=== PATIENT | female | born 1955 | race Caucasian/White ===

== ENCOUNTER → 2019-07-20 | Outpatient (CLI) | payer MEDICARE, BC ==
[2016-03-08 08:42] VITALS: BP 138/89
[~2019-07-20] MED LIST: ASPI81TA50 PO; ATOR40TA59 PO; CALC-98 PO; DILT120T3 PO; DIVA500T2 PO; DULO30CA44 PO; FURO20TA3 PO; HYDROCODONE-IB1 EAC3 PO; ISOS30TA19 PO; LEVO50TA5 PO; LOSA25TA54 PO; METF10007 PO; MULT-460 PO; NITR0.4T SL; NORT50CA PO; OXYC1TAB15 PO; POTA500T5 PO; WARF4TAB64 PO
--- NOTE | 2019-07-21 09:25 | KCIC ---
EXAM: MRI right shoulder DATE: 07/20/2019 1:15 PM COMPARISON: None INDICATION: Progressing right shoulder pain for one year TECHNIQUE: Multiplanar, multisequence MRI of the right shoulder was performed without contrast. FINDINGS: AC joint degenerative changes are seen with small inferior projecting osteophytes. Type I acromion. Subacromial-subdeltoid bursal distention likely bursitis. There is marked thickening of the central portion of the the supraspinous tendon with marked increased signal, just below the threshold for a fluid signal. The bursal and articular fibers are visualized and therefore tear tear of the supraspinatus is less likely. However tendinosis or contusion have similar appearance. In addition, hydroxyapatite deposition disease may also have similar characteristics. This can be correlated with radiographs and patient's symptoms. Intrasubstance ganglion within the infraspinatus extends to the myotendinous junction. Mild subscapularis tendinosis. Mild thickening of the intra-articular segment long head biceps tendon likely tendinosis. Fissuring of the extra articular long head biceps tendon with fluid signal. No discrete labral tear is seen. Survey evaluation of the articular cartilage, grossly preserved. No evidence for fracture or osteonecrosis. IMPRESSION: 1. Morphologic and signal changes within the central portion of the supraspinatus at the attachment with apparently intact articular and bursal fibers. Given these findings contusion or tendinosis is suspected anterior is less likely. Additionally intrinsic tendinous process such as calcific tendinitis/hydroxyapatite deposition disease may result in similar appearance and can be correlated with patient's symptoms and radiographs. 2. Intrasubstance ganglion of the infraspinatus extends to the myotendinous junction. 3. Intra-articular long head biceps tendinosis. Extra articular long head biceps partial fissuring/incomplete longitudinal tear. Electronically signed by: Eliazar Brooks MD (07/21/2019 9:22 AM) [facility]
== END | disposition home or self-care (01) ==
LOC: KCIC MRI 12:24
PROVIDERS: ATTEND Family Medicine
DX: M19.011 Primary osteoarthritis, right shoulder (principal)
CPT/HCPCS: 73221

== ENCOUNTER 2020-06-06 16:58 | Inpatient (IN) | payer MEDICARE, BC ==
[~2020-06-06] VITALS: Ht 167.6 cm; Wt 110.7 kg
[2020-06-06] MEDS: IV NORMAL SALINE 1000ML BAG 1,000 ML IV SCH (15:00)
[~2020-06-06 16:58] MED LIST changes: -NITR0.4T SL; +NITR0.4T24 SL
[2020-06-06] MEDS ORDERED: IV NORMAL SALINE 500ML BAG 500 ML IV ONE (20:30)
--- NOTE | 2020-06-06 20:34 | PHYS DOC ---
Past Medical History Smoking Status: Current Every Day Smoker General Adult EDM: Chief Complaint: SHORTNESS OF BREATH HPI: HPI: Patient is a 65-year-old female who presents with a three-week history of hemoptysis. She states she has been coughing and every time she coughs something up there is a fair amount of blood in the sputum. She denies any fever chills or sweats. She does feel achy. She states she is only smoked 1 cigarette in the last 5 or 6 days. Ordinarily, she is a heavy smoker. Patient denies any chest pain. She denies any unintended weight loss. [] Review of Systems: Review of Systems: Constitutional: Denies fever or chills. [] Eyes: Denies change in visual acuity. [] HENT: Denies nasal congestion or sore throat. [] Respiratory: Per HPI [] Cardiovascular: Denies chest pain or edema. [] GI: Denies abdominal pain, nausea, vomiting, bloody stools or diarrhea. [] : Denies dysuria. [] Musculoskeletal: Denies back pain or joint pain. [] Integument: Denies rash. [] Neurologic: Denies headache, focal weakness or sensory changes. [] Endocrine: Denies polyuria or polydipsia. [] Lymphatic: Denies swollen glands. [] Psychiatric: Denies depression or anxiety. [] Heart Score: Risk Factors: Risk Factors: DM, Current or recent (<one month) smoker, HTN, HLP, family history of CAD, obesity. Risk Scores: Score 0 - 3: 2.5% MACE over next 6 weeks - Discharge Home Score 4 - 6: 20.3% MACE over next 6 weeks - Admit for Clinical Observation Score 7 - 10: 72.7% MACE over next 6 weeks - Early Invasive Strategies Allergies: Allergies: Allergies Coded Allergies Type Severity Reaction Last Updated Verified nickel Allergy Intermediate METAL (RASH) 03/05/16 No tramadol Allergy Intermediate 03/05/16 Yes sumatriptan Adverse Reaction Severe TACHYCARDIA 03/05/16 Yes Physical Exam: PE: Constitutional: Well developed, well nourished, no acute distress, non-toxic appearance. [] HENT: Normocephalic, atraumatic, bilateral external ears normal, oropharynx moist, no oral exudates, nose normal. [] Eyes: PERRLA, EOMI, conjunctiva normal, no discharge. [] Neck: Normal range of motion, no tenderness, supple, no stridor. [] Cardiovascular:Heart rate regular rhythm, no murmur [] Lungs & Thorax: Bilateral breath sounds clear to auscultation [] Abdomen: Bowel sounds normal, soft, no tenderness, no masses, no pulsatile masses. [] Skin: Warm, dry, no erythema, no rash. [] Back: No tenderness, no CVA tenderness. [] Extremities: No tenderness, no cyanosis, no clubbing, ROM intact, no edema. [] Neurologic: Alert and oriented X 3, normal motor function, normal sensory function, no focal deficits noted. [] Psychologic: Affect normal, judgement normal, mood normal. [] EKG: EKG: [] Radiology/Procedures: Radiology/Procedures: []REASON: hemoptysis PROCEDURE: CT ANGIOGRAPHY CHEST Exam: CT of chest with contrast INDICATION: Hemoptysis TECHNIQUE: Sequential axial images through the chest obtained following the administration of 90 mL of Isovue-370 IV contrast. Sagittal and coronal reformatted images were reconstructed from the axial data and reviewed. 3-D reformatted images were reconstructed from the axial data and reviewed. Comparisons: None FINDINGS: Visual is portions of the thyroid are unremarkable. No enlarged mediastinal lymph nodes. Heart size is normal. No pericardial effusion. Thoracic aorta has a normal course and caliber. Pulmonary artery is not enlarged. There is a large right suprahilar mass measuring approximately 9.3 x 6.4 cm which compresses the right upper lobe pulmonary artery. Mass extends into the subcarinal region. Additionally this mass causes compression of the right upper lobe bronchus and there is consolidative changes in the right upper lobe likely postobstructive in etiology. No pneumothorax. There is a small right pleural effusion. Visualized upper abdomen is unremarkable. No suspicious osseous lesions or acute fractures. IMPRESSION: 1. No pulmonary embolus identified within the main, lobar or segmental pulmonary arteries. 2. Large mass in the right hilar/subcarinal region measuring approximately 9.3 x 6.4 cm causing compression of the right upper lobe bronchus and pulmonary artery. Findings are favored represent primary lung malignancy. 3. Consolidative changes in the right upper lobe favored to represent postobstructive pneumonia. Course & Med Decision Making: Course & Med Decision Making Pertinent Labs and Imaging studies reviewed. (See chart for details) [ED course: Evaluation reveals a 65-year-old female who has been a longtime smoker. She has had hemoptysis recently. CT scan tonight showed a large lung mass that is likely a primary lung cancer. Given her hemoptysis I felt that it was in the patient's best interest to be placed in the hospital in the work-up was started.] Dragon Disclaimer: Dragon Disclaimer: This electronic medical record was generated, in whole or in part, using a voice recognition dictation system. Departure Departure Impression: Primary Impression: Cough with hemoptysis Additional Impression: Lung mass Disposition: ADMITTED INPATIENT Admitting Physician: HIMValeria Condition: STABLE Referrals: YOLY ELLIS (PCP) Justicifation of Admission Dx: Justifications for Admission: Justification of Admission Dx: Yes Comments: Hemoptysis ALFONSO WAHL DO Jun 06, 2020 20:34
[2020-06-06 21:08] LABS: BASO # 0.1 x10^3/uL (0.0-0.2); BASO % 1 % (0-3); EOS # 0.1 x10^3/uL (0.0-0.7); EOS % 1 % (0-3); HEMATOCRIT 29.9 % (36.0-47.0); HEMOGLOBIN 10.5 g/dL (12.0-15.5); LYMPH # 2.2 x10^3/uL (1.0-4.8); LYMPH % 21 % (24-48); MEAN CORPUSCULAR HEMOGLOBIN 32 pg (25-35); MEAN CORPUSCULAR HGB CONC 35 g/dL (31-37); MEAN CORPUSCULAR VOLUME 90 fL (79-100); MONO # 0.8 x10^3/uL (0.0-1.1); MONO % 8 % (0-9); NEUT # 7.1 x10^3/uL (1.8-7.7); NEUT % 69 % (31-73); PLATELET COUNT 462 x10^3/uL (140-400); RED BLOOD COUNT 3.33 x10^6/uL (3.50-5.40); RED CELL DISTRIBUTION WIDTH 13.9 % (11.5-14.5); WHITE BLOOD COUNT 10.3 x10^3/uL (4.0-11.0)
[2020-06-06 21:18] LABS: PROTHROMBIN TIME PATIENT 13.2 SEC (11.7-14.0)
[2020-06-06 21:23] LABS: CALCIUM 9.3 mg/dL (8.5-10.1); CREATININE 1.1 mg/dL (0.6-1.0); POTASSIUM 4.6 mmol/L (3.5-5.1)
[2020-06-06 21:29] LABS: ALBUMIN 2.7 g/dL (3.4-5.0); ALBUMIN/GLOBULIN RATIO 0.6 (1.0-1.7); MAGNESIUM 1.7 mg/dL (1.8-2.4); TOTAL BILIRUBIN 0.1 mg/dL (0.2-1.0); TOTAL PROTEIN 7.1 g/dL (6.4-8.2)
[2020-06-06] MEDS ORDERED: IOHEXOL 350 MG/ML 100 ML VIAL. ONE (22:00)
--- NOTE | 2020-06-06 22:35 | RAD ---
Exam: CT of chest with contrast INDICATION: Hemoptysis TECHNIQUE: Sequential axial images through the chest obtained following the administration of 90 mL of Isovue-370 IV contrast. Sagittal and coronal reformatted images were reconstructed from the axial data and reviewed. 3-D reformatted images were reconstructed from the axial data and reviewed. Comparisons: None FINDINGS: Visual is portions of the thyroid are unremarkable. No enlarged mediastinal lymph nodes. Heart size is normal. No pericardial effusion. Thoracic aorta has a normal course and caliber. Pulmonary artery is not enlarged. There is a large right suprahilar mass measuring approximately 9.3 x 6.4 cm which compresses the right upper lobe pulmonary artery. Mass extends into the subcarinal region. Additionally this mass causes compression of the right upper lobe bronchus and there is consolidative changes in the right upper lobe likely postobstructive in etiology. No pneumothorax. There is a small right pleural effusion. Visualized upper abdomen is unremarkable. No suspicious osseous lesions or acute fractures. IMPRESSION: 1. No pulmonary embolus identified within the main, lobar or segmental pulmonary arteries. 2. Large mass in the right hilar/subcarinal region measuring approximately 9.3 x 6.4 cm causing compression of the right upper lobe bronchus and pulmonary artery. Findings are favored represent primary lung malignancy. 3. Consolidative changes in the right upper lobe favored to represent postobstructive pneumonia. Exposure: One or more of the following in the visualized dose reduction techniques were utilized for this examination: 1. Automated exposure control 2. Adjustment of the MA and/or KV according to patient size 3. Use of iterative of reconstructive technique Electronically signed by: Abiola Ware MD (06/06/2020 10:32 PM) [id number]
[2020-06-06] MEDS ORDERED: ONDANSETRON PF 4 MG/2 ML VIAL. IV PRN (23:00)
[2020-06-07] VITALS (7 sets, daily range): BP systolic 155–186; BP diastolic 60–97
[2020-06-07] MEDS: IV NORMAL SALINE 1000ML BAG 1,000 ML IV SCH ×2 (00:51→05:07)
[2020-06-07] MEDS ORDERED: AMOX1TAB61 PO (01:33)
[2020-06-07] MEDS ORDERED: BACL20TA PO (01:33)
[2020-06-07] MEDS ORDERED: METR-34 PO (01:33)
--- NOTE | 2020-06-07 03:22 | EKG ---
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
[2020-06-07 05:10] LABS: BASO % 1 % (0-3); EOS # 0.1 x10^3/uL (0.0-0.7); EOS % 1 % (0-3); HEMATOCRIT 30.5 % (36.0-47.0); HEMOGLOBIN 10.5 g/dL (12.0-15.5); LYMPH % 22 % (24-48); MEAN CORPUSCULAR HEMOGLOBIN 31 pg (25-35); MEAN CORPUSCULAR HGB CONC 34 g/dL (31-37); MEAN CORPUSCULAR VOLUME 90 fL (79-100); MONO # 0.7 x10^3/uL (0.0-1.1); MONO % 8 % (0-9); NEUT % 68 % (31-73); PLATELET COUNT 461 x10^3/uL (140-400); RED BLOOD COUNT 3.38 x10^6/uL (3.50-5.40); RED CELL DISTRIBUTION WIDTH 13.8 % (11.5-14.5); WHITE BLOOD COUNT 8.8 x10^3/uL (4.0-11.0)
[2020-06-07 05:46] LABS: ALBUMIN 2.6 g/dL (3.4-5.0); ALBUMIN/GLOBULIN RATIO 0.6 (1.0-1.7); CALCIUM 9.1 mg/dL (8.5-10.1); CREATININE 0.9 mg/dL (0.6-1.0); POTASSIUM 4.2 mmol/L (3.5-5.1); TOTAL BILIRUBIN 0.2 mg/dL (0.2-1.0); TOTAL PROTEIN 6.9 g/dL (6.4-8.2)
--- NOTE | 2020-06-07 09:32 | HP ---
ADMIT DATE: CHIEF COMPLAINT: Hemoptysis and shortness of breath. HISTORY OF PRESENT ILLNESS: The patient is a pleasant 65-year-old female who states she quit smoking 3 weeks ago, but then she had a cigarette on the way to the hospital. She came to the hospital because she has been coughing up blood, it is a fair amount of blood, rated at 6/10. She has associated anxiety. I discussed the case with ER physician. We are going to admit the patient and consult Pulmonary Medicine. It should be noted that she also has a lung mass on her chest x-ray done in the ER. It is a large mass about 9.3 x 6.4 causing compression of the right bronchus. Findings are favoring primary lung cancer. PAST MEDICAL HISTORY: Heavy tobacco abuse, hypertension, hyperlipidemia, angina, seizures, edema, diabetes. ALLERGIES: SUMATRIPTAN, ULTRAM, and NICKEL. FAMILY HISTORY: Coronary disease. SOCIAL HISTORY: She smoked until 3 weeks ago, although she smoked a cigar on the way here, does not drink or take drugs. She is retired. MEDICATIONS: Reviewed, please refer to the MRAD. REVIEW OF SYSTEMS: GENERAL: No history of weight change, weakness or fevers. SKIN: No bruising, hair changes or rashes. EYES: No blurred, double or loss of vision. NOSE AND THROAT: No history of nosebleeds, hoarseness or sore throat. HEART: No history of palpitations, chest pain. LUNGS: She complains of shortness of breath and cough and hemoptysis.. GASTROINTESTINAL: Denies changes in appetite, nausea, vomiting, diarrhea or constipation. GENITOURINARY: No history of frequency, urgency, hesitancy or nocturia. NEUROLOGIC: Denies history of numbness, tingling, tremor or weakness. PSYCHIATRIC: No history of panic, anxiety or depression. ENDOCRINE: No history of heat or cold intolerance, polyuria or polydipsia. EXTREMITIES: Denies muscle weakness, joint pain, pain on walking or stiffness. PHYSICAL EXAMINATION: VITALS: Within normal limits and are stable. GENERAL: No apparent distress. Alert and oriented. HEENT: Normal cephalic atraumatic, external auditory canals are patent EYES: Extraocular muscles are intact, pupils are equally round and reactive to light and accommodation MUSCULOSKELETAL: Well developed, well nourished, good range of motion ENDOCRINE: No thyromegaly was palpated. LYMPHATICS: No cervical chain or axillary nodes were noted HEMATOPOIETIC: No bruising NECK: Supple, no JVD, no thyromegaly was noted. LUNGS: Clear to auscultation in all lung payne without rhonchi or wheezing. HEART: RRR, S1, S2 present. Peripheral pulses intact, no obvious murmurs were noted. ABDOMEN: Soft, nontender. Positive bowel sounds no organomegaly, normal bowel sounds. EXTREMITIES: Without any cyanosis, clubbing, or edema. Pedal pulses intact, Homans sign is negative. NEUROLOGIC: Normal speech, normal tone. A & O x3, moves all extremities, no obvious focal deficits. PSYCHIATRIC: Normal affect, normal mood. Stable. SKIN: No ulcerations or rashes, good skin turgor, no jaundice. VASCULAR: Good capillary refill, neurovascular bundle appears to be intact. LABORATORY DATA: White count 10, hemoglobin 10, platelets 462. Electrolytes are normal. CT of the chest shows a large pulmonary mass 9.3 x 6.4. ASSESSMENT AND PLAN: Probable lung cancer. The patient has been admitted. We will consult Pulmonary Medicine. Suspect we will need to get a biopsy to confirm this. Consult Hematology/Oncology, home meds, DVT prophylaxis, full code, DuoNeb. PROGNOSIS: Extremely guarded. LUCIANA LANDEROS DO DR: JAMEL/nabil JOB#: [id number] / [id number]
--- NOTE | 2020-06-07 11:45 | CONS ---
DATE OF CONSULTATION: PULMONARY CONSULTATION ATTENDING PHYSICIAN: Bala Bravo MD. REASON FOR CONSULTATION: Hemoptysis, lung mass. HISTORY OF PRESENT ILLNESS: The patient is a 65-year-old obese female with a BMI of 40.9. The patient has been having hemoptysis for 3 weeks. She saw her primary care doctor who called me that despite antibiotic there is no improvement with hemoptysis. As a result, I advised him to come to the Emergency Room and get a CAT scan of the chest. The patient has smoked for about 50 years. She has not completely quit tobacco. She has never been tested for sleep apnea. She has no history of deep vein thrombosis or pulmonary embolism. She denies any weight loss. Imaging study was performed and CTA chest was reviewed by me. The patient has a large right suprahilar mass measuring about 9.3 cm in size. There is compression of the right upper lobe bronchus. There is also compression of the pulmonary artery on the right side. There is postobstructive consolidation versus a mass in the right upper lobe. I have been asked to see her for further evaluation. No suspicious lesion or acute fractures were seen. No abdominal pathology reported. She is currently requiring oxygen at 2 liters. PAST MEDICAL HISTORY: Significant for, 1. History of tobacco use, suspected underlying COPD. 2. 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 3. She has hypertension, hyperlipidemia, seizures, and diabetes. PAST SURGICAL HISTORY: No recent surgeries. FAMILY HISTORY: Coronary artery disease. ALLERGIES: SUMATRIPTAN, ULTRAM, AND NICKEL. SOCIAL HISTORY: Smoked since age 17. Smoked for at least 50 years. MEDICATIONS: Reviewed as listed in the MRAD. REVIEW OF SYSTEMS: Twelve-point system obtained. Pertinent positives discussed in my history of present illness, otherwise noncontributory. All systems that were negative were reviewed as well. PHYSICAL EXAMINATION: VITAL SIGNS: Reviewed. Blood pressure on the high side. Pulse ox 97% on 2 liters, afebrile. HEENT: Sclerae nonicteric. NECK: Supple. LUNGS: With diminished breath sounds in right lung. CARDIOVASCULAR: With a regular rate. ABDOMEN: Soft, obese. EXTREMITIES: With no pitting edema. LABORATORY DATA: Reviewed. White cell count 8.8, hemoglobin 10.5, and platelets are 461. INR 1.0. BUN 13, creatinine 0.9. Albumin is 2.6. IMPRESSION: 1. Acute hypoxic respiratory failure secondary to underlying chronic obstructive pulmonary disease, obesity and highly suspected primary lung malignancy. 2. Hemoptysis secondary to suspected endobronchial lesion. 3. Abnormal CT chest with a large suprahilar mass 9.3 cm in size causing compression of the right upper lobe bronchus and also endobronchial lesion is suspected. She has a postobstructive consolidation in the right upper lobe, which could be combination of blood and pneumonia. RECOMMENDATIONS: 1. Discussed with the patient and RN. I explained to her the CT chest findings. She would be a candidate for bronchoscopy. COVID testing is pending and once she is ruled out, we will pursue with bronchoscopy. She understands the risk. She also understands that post-biopsy, there could be bleeding, which in a small percentage of cases, may result in respiratory failure requiring mechanical ventilation. She agrees to proceed with the procedure. 2. We will do CT abdomen and pelvis to rule out any distant metastasis. 3. Continue present oxygen. 4. Add empiric antibiotic. 5. Weight loss is advised. 6. Medical-Oncology and Radiation-Oncology consultation. Based on the CT chest, she is not a surgical candidate. 7. PFTs as an outpatient. 8. Discussed with RN and we will follow along with you. ANNA RIOJAS MD DR: KHURRAM/nabil JOB#: [id number] / [id number]
[2020-06-07] MEDS: ASPIRIN ENTERIC COATED 81 MG TABLET.DR. PO SCH (15:38)
[2020-06-07] MEDS: BACLOFEN 10 MG TABLET. PO SCH ×2 (15:38→20:36)
[2020-06-07] MEDS: LOSARTAN POTASSIUM 25 MG TABLET. PO SCH (15:39)
[2020-06-07] MEDS: FUROSEMIDE 20 MG TABLET PO SCH (15:39)
[2020-06-07] MEDS: MULTIVITAMIN with MINERAL TABLET. PO SCH (15:39)
[2020-06-07] MEDS: cefTRIAXone IV Push 1 GM VIAL. IVP SCH (15:41)
--- NOTE | 2020-06-07 16:26 | RAD ---
Exam: CT of abdomen and pelvis without contrast INDICATION: Lung mass TECHNIQUE: Sequential axial images through the abdomen and pelvis obtained without IV contrast. Sagittal and coronal reformatted images were reconstructed from the axial data and reviewed. Comparisons: None FINDINGS: Heart size is normal. No pericardial effusion. There is a small right pleural effusion. Visualized lung bases are clear. Evaluation of solid organs limited secondary to noncontrast technique. Liver, spleen, pancreas and adrenals are unremarkable. Gallbladder is nondistended. Contrast is seen within the gallbladder likely from vicarious excretion. No perinephric inflammation or hydronephrosis. No renal or ureteral calculi are identified. Pelvis not well evaluated secondary to extensive metallic streak artifact from bilateral hip arthroplasties. Large and small bowel are unremarkable. Appendix is not identified. No free intra-abdominal air or fluid. No obstruction. Abdominal aorta has a normal course and caliber. No enlarged intra-abdominal lymph nodes are identified. No suspicious osseous lesions or acute fractures. IMPRESSION: 1. No convincing evidence for malignancy identified within the abdomen or pelvis on noncontrast exam. 2. Small right pleural effusion. Exposure: One or more of the following in the visualized dose reduction techniques were utilized for this examination: 1. Automated exposure control 2. Adjustment of the MA and/or KV according to patient size 3. Use of iterative of reconstructive technique Electronically signed by: Abiola Ware MD (06/07/2020 4:23 PM) [id number]
--- NOTE | 2020-06-07 17:05 | PDOC2 ---
CONSULT Date of Consult Date of Consult DATE: 06/07/20 TIME: 16:47 Reason for Consult Reason for Consult: Lung mass Referring Physician Referring Physician: Dr Byrd Identification/Chief Complaint Chief Complaint Hemoptysis Problems: (1) Lung mass (2) Cough with hemoptysis Source Source: Chart review, Patient History of Present Illness Reason for Visit: Ms Molina is a 65 year old female with hx of tobacco use who has been admitted for further evaluation and management of hemoptysis. Patient reprots that she has noticed bloody content in her sputum for several days. Following her admission to the hospital, she received a CT chest which showed a large right hilar mass with post-obstructive pneumonia. She endorses shortness of breath. She denies fever, chills, or chest pain. She reports a hx of DM2 but has no hx of HTN, CAD or CVA. She has been seen by Dr Amor in consultation and bronchoscopy has been planned for sampling of the lung mass. Oncology has been consulted to assist with work-up of lung mass. Past Medical History Cardiovascular: HTN Musculoskeletal: Osteoarthritis Endocrine: Diabetes Past Surgical History Past Surgical History: Total hip replacement Family History Family History: No Significant Social History ALCOHOL: none Domestic Violence: Neg Current Problem List Problem List Problems Medical Problems: (1) Cough with hemoptysis Status: Acute (2) Lung mass Status: Acute Current Medications Current Medications Current Medications Sodium Chloride 500 ml @ 500 mls/hr 1X ONCE IV Last administered on 06/06/20at 21:07; Start 06/06/20 at 20:30; Stop 06/06/20 at 21:29; Status DC Iohexol (Omnipaque 350 Mg/ml) 100 ml Dragonfly-MED ONCE .ROUTE ; Start 06/06/20 at 22:00; Stop 06/06/20 at 22:00; Status DC Ondansetron HCl (Zofran) 4 mg PRN Q8HRS PRN IV NAUSEA/VOMITING; Start 06/06/20 at 23:00; Stop 06/07/20 at 22:59 Sodium Chloride 1,000 ml @ 125 mls/hr Q8H IV Last administered on 06/07/20at 00:51; Start 06/06/20 at 23:00; Stop 06/07/20 at 22:59 Ceftriaxone Sodium (Rocephin) 1 gm Q24H IVP Last administered on 06/07/20at 15:41; Start 06/07/20 at 13:00 Aspirin (Ecotrin) 81 mg DAILY PO Last administered on 06/07/20at 15:38; Start 06/07/20 at 13:30 Atorvastatin Calcium (Lipitor) 40 mg HS PO ; Start 06/07/20 at 21:00 Divalproex Sodium (Depakote) 1,000 mg HS PO ; Start 06/07/20 at 21:00 Furosemide (Lasix) 20 mg DAILY PO Last administered on 06/07/20at 15:39; Start 06/07/20 at 13:30 Losartan Potassium (Cozaar) 25 mg DAILY PO Last administered on 06/07/20at 15:39; Start 06/07/20 at 13:30 Diltiazem HCl (Cardizem 24hr Cd) 180 mg BID PO ; Start 06/07/20 at 21:00 Metformin HCl (Glucophage) 1,000 mg BIDWMEALS PO ; Start 06/07/20 at 17:00 Multivitamins (Thera M Plus) 1 tab DAILY PO Last administered on 06/07/20at 15:39; Start 06/07/20 at 13:30 Nortriptyline HCl (Pamelor) 100 mg QHS PO ; Start 06/07/20 at 21:00 Baclofen (Lioresal) 20 mg TID PO Last administered on 06/07/20at 15:38; Start 06/07/20 at 14:00 Active Scripts Active Reported Augmentin 875-125 Tablet (Amoxicillin/Potassium Clav) 1 Each Tablet 1 Tab PO BID 4 Days Baclofen 20 Mg Tablet 20 Mg PO TID Metronidazole 500 Mg Tablet 1 Tab PO BID 7 Days Aspir-Low (Aspirin) 81 Mg Tablet.dr 81 Mg PO DAILY LAST DOSE GIVEN: DATE: 03/08 TIME: 9 am NEXT DOSE DUE: DATE: 03/09 TIME: 9 am Nitrostat (Nitroglycerin) 0.4 Mg Tab.subl 0.4 Mg SL PRN Take as directed as needed for chest pain. Losartan Potassium (Losartan Potassium) 25 Mg Tablet 25 Mg PO DAILY LAST DOSE GIVEN: DATE: 03/06 TIME: 9 am NEXT DOSE DUE: DATE: 03/09 TIME: 9 am Atorvastatin Calcium 40 Mg Tablet 40 Mg PO HS LAST DOSE GIVEN: DATE: 03/07 TIME: 9 pm NEXT DOSE DUE: DATE: 03/08 TIME: 9 pm Nortriptyline Hcl 50 Mg Capsule 100 Mg PO HS LAST DOSE GIVEN: DATE: 03/07 TIME: 9 pm NEXT DOSE DUE: DATE: 03/08 TIME: 9 pm Depakote (Divalproex Sodium) 500 Mg Tablet.dr 1,000 Mg PO HS LAST DOSE GIVEN: DATE: 03/07 TIME: 9 pm NEXT DOSE DUE: DATE: 03/08 TIME: 9 pm Metformin Hcl 1,000 Mg Tablet 1,000 Mg PO BID LAST DOSE GIVEN: DATE: 03/08 TIME: 8 am NEXT DOSE DUE: DATE: 03/08 TIME: 5 pm Diltiazem Hcl Tablet (Diltiazem Hcl) 120 Mg Tablet 180 Mg PO BID LAST DOSE GIVEN: DATE: 03/08 TIME: 9 am NEXT DOSE DUE: DATE: 03/08 TIME: 9 am Furosemide 20 Mg Tablet 20 Mg PO DAILY LAST DOSE GIVEN: DATE: 03/07 TIME: 9 am NEXT DOSE DUE: DATE: 03/09 TIME: 9 am Multiple Vitamin (Multivitamin With Minerals) 1 Each Tablet 1 Each PO DAILY LAST DOSE GIVEN: DATE: 03/08 TIME: 9 am NEXT DOSE DUE: DATE: 03/09 TIME: 9 am Allergies Allergies: Coded Allergies: nickel (Unverified Allergy, Intermediate, METAL (RASH), 03/05/16) tramadol (Verified Allergy, Intermediate, 03/05/16) MAKES HER FEEL "HIGH" sumatriptan (Verified Adverse Reaction, Severe, TACHYCARDIA, 03/05/16) ROS General: No: Chills, Night Sweats PSYCHOLOGICAL ROS: No: Anxiety Eyes: No Blurry vision, No Decreased vision HEENT: No: Heacaches, Visual Changes ALLERGY AND IMMUNOLOGY: No: Hives, Nasal Congestion Hematological and Lymphatic: No: Bleeding Problems, Blood Clots, Blood Transfusions ENDOCRINE: No: Breast Changes Respiratory: YES: Cough, Hemoptysis, Pleuritic Pain, Shortness of breath; No: Orthopnea Cardiovascular: No Chest Pain, No Edema Gastrointestinal: No Nausea, No Vomiting Genitourinary: No Dysuria, No Flank Pain Musculoskeletal: No Gait Disturbance, No Joint Pain Neurological: No Behavorial Changes Skin: No Dry Skin Physical Exam General: Alert, Oriented X3 HEENT: Atraumatic Lungs: Clear to auscultation, Other (Crackles heard on the right side, decreased air entry in the lung bases) Heart: Regular rate, Normal S1 Abdomen: Normal bowel sounds Extremities: No clubbing Skin: No rashes Neuro: Normal gait, Normal tone MUSCULOSKELETAL: No swelling Vitals VITALS Vital Signs Date Time Temp Pulse Resp B/P (MAP) Pulse Ox O2 Delivery O2 Flow Rate FiO2 06/07/20 15:39 94 182/60 06/07/20 15:20 98.2 18 93 Nasal Cannula 2.0 98.2 Labs Labs Laboratory Tests Test 06/06/20 20:50 06/07/20 04:45 White Blood Count 10.3 x10^3/uL (4.0-11.0) 8.8 x10^3/uL (4.0-11.0) Red Blood Count 3.33 x10^6/uL (3.50-5.40) 3.38 x10^6/uL (3.50-5.40) Hemoglobin 10.5 g/dL (12.0-15.5) 10.5 g/dL (12.0-15.5) Hematocrit 29.9 % (36.0-47.0) 30.5 % (36.0-47.0) Mean Corpuscular Volume 90 fL (79-100) 90 fL (79-100) Mean Corpuscular Hemoglobin 32 pg (25-35) 31 pg (25-35) Mean Corpuscular Hemoglobin Concent 35 g/dL (31-37) 34 g/dL (31-37) Red Cell Distribution Width 13.9 % (11.5-14.5) 13.8 % (11.5-14.5) Platelet Count 462 x10^3/uL (140-400) 461 x10^3/uL (140-400) Neutrophils (%) (Auto) 69 % (31-73) 68 % (31-73) Lymphocytes (%) (Auto) 21 % (24-48) 22 % (24-48) Monocytes (%) (Auto) 8 % (0-9) 8 % (0-9) Eosinophils (%) (Auto) 1 % (0-3) 1 % (0-3) Basophils (%) (Auto) 1 % (0-3) 1 % (0-3) Neutrophils # (Auto) 7.1 x10^3/uL (1.8-7.7) 6.0 x10^3/uL (1.8-7.7) Lymphocytes # (Auto) 2.2 x10^3/uL (1.0-4.8) 2.0 x10^3/uL (1.0-4.8) Monocytes # (Auto) 0.8 x10^3/uL (0.0-1.1) 0.7 x10^3/uL (0.0-1.1) Eosinophils # (Auto) 0.1 x10^3/uL (0.0-0.7) 0.1 x10^3/uL (0.0-0.7) Basophils # (Auto) 0.1 x10^3/uL (0.0-0.2) 0.0 x10^3/uL (0.0-0.2) Prothrombin Time 13.2 SEC (11.7-14.0) Prothromb Time International Ratio 1.0 (0.8-1.1) Sodium Level 139 mmol/L (136-145) 139 mmol/L (136-145) Potassium Level 4.6 mmol/L (3.5-5.1) 4.2 mmol/L (3.5-5.1) Chloride Level 103 mmol/L (98-107) 103 mmol/L (98-107) Carbon Dioxide Level 28 mmol/L (21-32) 29 mmol/L (21-32) Anion Gap 8 (6-14) 7 (6-14) Blood Urea Nitrogen 16 mg/dL (7-20) 13 mg/dL (7-20) Creatinine 1.1 mg/dL (0.6-1.0) 0.9 mg/dL (0.6-1.0) Estimated GFR (Cockcroft-Gault) 50.0 63.0 BUN/Creatinine Ratio 15 (6-20) 14 (6-20) Glucose Level 128 mg/dL (70-99) 140 mg/dL (70-99) Calcium Level 9.3 mg/dL (8.5-10.1) 9.1 mg/dL (8.5-10.1) Magnesium Level 1.7 mg/dL (1.8-2.4) Total Bilirubin 0.1 mg/dL (0.2-1.0) 0.2 mg/dL (0.2-1.0) Aspartate Amino Transf (AST/SGOT) 16 U/L (15-37) 16 U/L (15-37) Alanine Aminotransferase (ALT/SGPT) 25 U/L (14-59) 22 U/L (14-59) Alkaline Phosphatase 100 U/L (46-116) 95 U/L (46-116) Troponin I Quantitative < 0.017 ng/mL (0.000-0.055) NF-Llh-K-Type Natriuretic Peptide 216 pg/mL (0-124) Total Protein 7.1 g/dL (6.4-8.2) 6.9 g/dL (6.4-8.2) Albumin 2.7 g/dL (3.4-5.0) 2.6 g/dL (3.4-5.0) Albumin/Globulin Ratio 0.6 (1.0-1.7) 0.6 (1.0-1.7) Laboratory Tests Test 06/06/20 20:50 06/07/20 04:45 White Blood Count 10.3 x10^3/uL (4.0-11.0) 8.8 x10^3/uL (4.0-11.0) Red Blood Count 3.33 x10^6/uL (3.50-5.40) 3.38 x10^6/uL (3.50-5.40) Hemoglobin 10.5 g/dL (12.0-15.5) 10.5 g/dL (12.0-15.5) Hematocrit 29.9 % (36.0-47.0) 30.5 % (36.0-47.0) Mean Corpuscular Volume 90 fL (79-100) 90 fL (79-100) Mean Corpuscular Hemoglobin 32 pg (25-35) 31 pg (25-35) Mean Corpuscular Hemoglobin Concent 35 g/dL (31-37) 34 g/dL (31-37) Red Cell Distribution Width 13.9 % (11.5-14.5) 13.8 % (11.5-14.5) Platelet Count 462 x10^3/uL (140-400) 461 x10^3/uL (140-400) Neutrophils (%) (Auto) 69 % (31-73) 68 % (31-73) Lymphocytes (%) (Auto) 21 % (24-48) 22 % (24-48) Monocytes (%) (Auto) 8 % (0-9) 8 % (0-9) Eosinophils (%) (Auto) 1 % (0-3) 1 % (0-3) Basophils (%) (Auto) 1 % (0-3) 1 % (0-3) Neutrophils # (Auto) 7.1 x10^3/uL (1.8-7.7) 6.0 x10^3/uL (1.8-7.7) Lymphocytes # (Auto) 2.2 x10^3/uL (1.0-4.8) 2.0 x10^3/uL (1.0-4.8) Monocytes # (Auto) 0.8 x10^3/uL (0.0-1.1) 0.7 x10^3/uL (0.0-1.1) Eosinophils # (Auto) 0.1 x10^3/uL (0.0-0.7) 0.1 x10^3/uL (0.0-0.7) Basophils # (Auto) 0.1 x10^3/uL (0.0-0.2) 0.0 x10^3/uL (0.0-0.2) Prothrombin Time 13.2 SEC (11.7-14.0) Prothromb Time International Ratio 1.0 (0.8-1.1) Sodium Level 139 mmol/L (136-145) 139 mmol/L (136-145) Potassium Level 4.6 mmol/L (3.5-5.1) 4.2 mmol/L (3.5-5.1) Chloride Level 103 mmol/L (98-107) 103 mmol/L (98-107) Carbon Dioxide Level 28 mmol/L (21-32) 29 mmol/L (21-32) Anion Gap 8 (6-14) 7 (6-14) Blood Urea Nitrogen 16 mg/dL (7-20) 13 mg/dL (7-20) Creatinine 1.1 mg/dL (0.6-1.0) 0.9 mg/dL (0.6-1.0) Estimated GFR (Cockcroft-Gault) 50.0 63.0 BUN/Creatinine Ratio 15 (6-20) 14 (6-20) Glucose Level 128 mg/dL (70-99) 140 mg/dL (70-99) Calcium Level 9.3 mg/dL (8.5-10.1) 9.1 mg/dL (8.5-10.1) Magnesium Level 1.7 mg/dL (1.8-2.4) Total Bilirubin 0.1 mg/dL (0.2-1.0) 0.2 mg/dL (0.2-1.0) Aspartate Amino Transf (AST/SGOT) 16 U/L (15-37) 16 U/L (15-37) Alanine Aminotransferase (ALT/SGPT) 25 U/L (14-59) 22 U/L (14-59) Alkaline Phosphatase 100 U/L (46-116) 95 U/L (46-116) Troponin I Quantitative < 0.017 ng/mL (0.000-0.055) HY-Dqr-T-Type Natriuretic Peptide 216 pg/mL (0-124) Total Protein 7.1 g/dL (6.4-8.2) 6.9 g/dL (6.4-8.2) Albumin 2.7 g/dL (3.4-5.0) 2.6 g/dL (3.4-5.0) Albumin/Globulin Ratio 0.6 (1.0-1.7) 0.6 (1.0-1.7) Images Images Reviewed CT chest results and personally reviewed images Assessment/Plan Assessment/Plan Assessment: Lung mass Right pleural effusion Hemoptysis Tobacco use Hypertension Recommendations: Agree with bronchoscopy for sampling of lung mass Agree with CT abdomen for evaluation of distant metastasis Recommend thoracentesis of right-sided pleural effusion, if feasible for staging purposes Unlikely to be surgically resectable based on appearance on CT Plan PET and MRI brain inpatient/outpatient after histologic diagnosis is obtained to complete staging Thank you for the consult Domo Cedeno MD Hem-Onc Ph: [phone] CHAPARRO CEDENO MD Jun 07, 2020 17:05
--- NOTE | 2020-06-07 17:28 | NUR ---
SW following. Spoke with RN and reviewed chart. SW attempted to call into pt's room to coordinate care. Pt on 2l 02 and IV Rocephin. Pt COVID pending. Pt is being followed by pulmonary and there is also a consult per her lung mass. SW to continue following.
[2020-06-07] MEDS: metFORMIN 500 MG TABLET PO SCH (17:42)
[2020-06-07] MEDS: NORTRIPTYLINE 25 MG CAPSULE PO SCH (20:36)
[2020-06-07] MEDS: DIVALPROEX DELAYED RELEASE 500 MG TABLET.DR. PO SCH (20:36)
[2020-06-07] MEDS: ATORVASTATIN CALCIUM 40 MG TABLET. PO SCH (20:36)
--- NOTE | 2020-06-08 02:39 | NUR ---
Transfer patient to N room 528. COVID (-), ok to transfer per Dr. Amor. Report given to AMRIT Claudio. All belongings with patient.
[2020-06-08 03:00] VITALS: BP 131/84
[2020-06-08 07:00] VITALS: BP 146/86
[2020-06-08] MEDS: metFORMIN 500 MG TABLET PO SCH ×2 (07:46→17:12)
[2020-06-08] MEDS: ASPIRIN ENTERIC COATED 81 MG TABLET.DR. PO SCH (08:25)
[2020-06-08] MEDS: BACLOFEN 10 MG TABLET. PO SCH ×3 (08:25→21:24)
[2020-06-08] MEDS: FUROSEMIDE 20 MG TABLET PO SCH (08:25)
[2020-06-08] MEDS: LOSARTAN POTASSIUM 25 MG TABLET. PO SCH (08:25)
[2020-06-08] MEDS: MULTIVITAMIN with MINERAL TABLET. PO SCH (08:26)
[2020-06-08 08:41] LABS: PROTHROMBIN TIME PATIENT 13.7 SEC (11.7-14.0)
[2020-06-08] MEDS ORDERED: LIDOCAINE 2% VISCOUS 100 ML BOTTLE. MM PRN (09:15)
[2020-06-08] MEDS ORDERED: EPINEPHrine 1 MG/ML VIAL INJ PRN (09:15)
[2020-06-08] MEDS ORDERED: LIDOCAINE 1% Multi-Dose 20 ML VIAL. INJ PRN (09:15)
[2020-06-08] MEDS ORDERED: LIDOCAINE 4% TOPICAL 50 ML SOLUTION. MM PRN (09:15)
[2020-06-08] MEDS ORDERED: ALBUTEROL SULFATE 2.5 MG/3 ML NEBU. NEB PRN (09:15)
--- NOTE | 2020-06-08 09:38 | PDOC ---
PULMONARY PROGRESS NOTES Subjective hemoptysis persist no soa Vitals Vital Signs Date Time Temp Pulse Resp B/P (MAP) Pulse Ox O2 Delivery O2 Flow Rate FiO2 06/08/20 07:52 Room Air 06/08/20 07:00 98.1 75 16 146/86 (106) 93 98.1 06/08/20 03:00 2.0 ROS: No Chest Pain, No Increase Cough General: Alert, No acute distress Lungs: Other (decrease bs ) Cardiovascular: S1 Abdomen: Soft, Other (obese) Neuro Exam: Alert Extremities: No Edema Skin: Warm Labs Laboratory Tests Test 06/06/20 20:50 06/07/20 04:45 06/08/20 08:15 White Blood Count 10.3 x10^3/uL (4.0-11.0) 8.8 x10^3/uL (4.0-11.0) Red Blood Count 3.33 x10^6/uL (3.50-5.40) 3.38 x10^6/uL (3.50-5.40) Hemoglobin 10.5 g/dL (12.0-15.5) 10.5 g/dL (12.0-15.5) Hematocrit 29.9 % (36.0-47.0) 30.5 % (36.0-47.0) Mean Corpuscular Volume 90 fL (79-100) 90 fL (79-100) Mean Corpuscular Hemoglobin 32 pg (25-35) 31 pg (25-35) Mean Corpuscular Hemoglobin Concent 35 g/dL (31-37) 34 g/dL (31-37) Red Cell Distribution Width 13.9 % (11.5-14.5) 13.8 % (11.5-14.5) Platelet Count 462 x10^3/uL (140-400) 461 x10^3/uL (140-400) Neutrophils (%) (Auto) 69 % (31-73) 68 % (31-73) Lymphocytes (%) (Auto) 21 % (24-48) 22 % (24-48) Monocytes (%) (Auto) 8 % (0-9) 8 % (0-9) Eosinophils (%) (Auto) 1 % (0-3) 1 % (0-3) Basophils (%) (Auto) 1 % (0-3) 1 % (0-3) Neutrophils # (Auto) 7.1 x10^3/uL (1.8-7.7) 6.0 x10^3/uL (1.8-7.7) Lymphocytes # (Auto) 2.2 x10^3/uL (1.0-4.8) 2.0 x10^3/uL (1.0-4.8) Monocytes # (Auto) 0.8 x10^3/uL (0.0-1.1) 0.7 x10^3/uL (0.0-1.1) Eosinophils # (Auto) 0.1 x10^3/uL (0.0-0.7) 0.1 x10^3/uL (0.0-0.7) Basophils # (Auto) 0.1 x10^3/uL (0.0-0.2) 0.0 x10^3/uL (0.0-0.2) Prothrombin Time 13.2 SEC (11.7-14.0) 13.7 SEC (11.7-14.0) Prothromb Time International Ratio 1.0 (0.8-1.1) 1.1 (0.8-1.1) Sodium Level 139 mmol/L (136-145) 139 mmol/L (136-145) Potassium Level 4.6 mmol/L (3.5-5.1) 4.2 mmol/L (3.5-5.1) Chloride Level 103 mmol/L (98-107) 103 mmol/L (98-107) Carbon Dioxide Level 28 mmol/L (21-32) 29 mmol/L (21-32) Anion Gap 8 (6-14) 7 (6-14) Blood Urea Nitrogen 16 mg/dL (7-20) 13 mg/dL (7-20) Creatinine 1.1 mg/dL (0.6-1.0) 0.9 mg/dL (0.6-1.0) Estimated GFR (Cockcroft-Gault) 50.0 63.0 BUN/Creatinine Ratio 15 (6-20) 14 (6-20) Glucose Level 128 mg/dL (70-99) 140 mg/dL (70-99) Calcium Level 9.3 mg/dL (8.5-10.1) 9.1 mg/dL (8.5-10.1) Magnesium Level 1.7 mg/dL (1.8-2.4) Total Bilirubin 0.1 mg/dL (0.2-1.0) 0.2 mg/dL (0.2-1.0) Aspartate Amino Transf (AST/SGOT) 16 U/L (15-37) 16 U/L (15-37) Alanine Aminotransferase (ALT/SGPT) 25 U/L (14-59) 22 U/L (14-59) Alkaline Phosphatase 100 U/L (46-116) 95 U/L (46-116) Troponin I Quantitative < 0.017 ng/mL (0.000-0.055) XK-Suh-E-Type Natriuretic Peptide 216 pg/mL (0-124) Total Protein 7.1 g/dL (6.4-8.2) 6.9 g/dL (6.4-8.2) Albumin 2.7 g/dL (3.4-5.0) 2.6 g/dL (3.4-5.0) Albumin/Globulin Ratio 0.6 (1.0-1.7) 0.6 (1.0-1.7) Coronavirus (PCR) Not detected (Not Detected) Laboratory Tests Test 06/08/20 08:15 Prothrombin Time 13.7 SEC (11.7-14.0) Prothromb Time International Ratio 1.1 (0.8-1.1) Medications Active Scripts Medications Dose Route/Sig Max Daily Dose Days Date Category Dose Instructions Augmentin 875-125 Tablet (Amoxicillin/Potassium Clav) 1 Each Tablet 1 Tab PO BID 4 06/07/20 Reported Baclofen 20 Mg Tablet 20 Mg PO TID 06/07/20 Reported Metronidazole 500 Mg Tablet 1 Tab PO BID 7 06/07/20 Reported Aspir-Low (Aspirin) 81 Mg Tablet.dr 81 Mg PO DAILY 02/18/14 Reported LAST DOSE GIVEN: DATE: 03/08 TIME: 9 am NEXT DOSE DUE: DATE: 03/09 TIME: 9 am Nitrostat (Nitroglycerin) 0.4 Mg Tab.subl 0.4 Mg SL PRN 02/09/14 Reported Take as directed as needed for chest pain. Losartan Potassium (Losartan Potassium) 25 Mg Tablet 25 Mg PO DAILY 02/09/14 Reported LAST DOSE GIVEN: DATE: 03/06 TIME: 9 am NEXT DOSE DUE: DATE: 03/09 TIME: 9 am Atorvastatin Calcium 40 Mg Tablet 40 Mg PO HS 02/09/14 Reported LAST DOSE GIVEN: DATE: 03/07 TIME: 9 pm NEXT DOSE DUE: DATE: 03/08 TIME: 9 pm Nortriptyline Hcl 50 Mg Capsule 100 Mg PO HS 02/09/14 Reported LAST DOSE GIVEN: DATE: 03/07 TIME: 9 pm NEXT DOSE DUE: DATE: 03/08 TIME: 9 pm Depakote (Divalproex Sodium) 500 Mg Tablet.dr 1,000 Mg PO HS 02/09/14 Reported LAST DOSE GIVEN: DATE: 03/07 TIME: 9 pm NEXT DOSE DUE: DATE: 03/08 TIME: 9 pm Metformin Hcl 1,000 Mg Tablet 1,000 Mg PO BID 02/09/14 Reported LAST DOSE GIVEN: DATE: 03/08 TIME: 8 am NEXT DOSE DUE: DATE: 03/08 TIME: 5 pm Diltiazem Hcl Tablet (Diltiazem Hcl) 120 Mg Tablet 180 Mg PO BID 02/09/14 Reported LAST DOSE GIVEN: DATE: 03/08 TIME: 9 am NEXT DOSE DUE: DATE: 03/08 TIME: 9 am Furosemide 20 Mg Tablet 20 Mg PO DAILY 02/09/14 Reported LAST DOSE GIVEN: DATE: 03/07 TIME: 9 am NEXT DOSE DUE: DATE: 03/09 TIME: 9 am Multiple Vitamin (Multivitamin With Minerals) 1 Each Tablet 1 Each PO DAILY 02/09/14 Reported LAST DOSE GIVEN: DATE: 03/08 TIME: 9 am NEXT DOSE DUE: DATE: 03/09 TIME: 9 am Impression . 1. Acute hypoxic respiratory failure secondary to underlying chronic obstructive pulmonary disease, obesity and highly suspected primary lung malignancy with endobronchial lesion. 2. Hemoptysis secondary to suspected endobronchial lesion. 3. Abnormal CT chest with a large suprahilar mass 9.3 cm in size causing compression of the right upper lobe bronchus and also endobronchial lesion is suspected. She has a postobstructive consolidation in the right upper lobe, which could be combination of blood and pneumonia. Plan . 1. Discussed with the patient and RN. I explained to her the CT chest findings. She would be a candidate for bronchoscopy. COVID testing is negative. . She understands the risk of procedure.. She also understands that post- biopsy, there could be bleeding, which in a small percentage of cases, may result in respiratory failure requiring mechanical ventilation. She agrees to proceed with the procedure. 2. CT abdomen and pelvis with no distant metastasis. 3. Continue present oxygen. 4. empiric antibiotic. 5. Weight loss is advised. 6. Medical-Oncology and Radiation-Oncology rec Based on the CT chest, she is not a surgical candidate. 7. PFTs as an outpatient. 8. Discussed with RN and we will follow along with you. ANNA RIOJAS MD Jun 08, 2020 09:38
[2020-06-08] MEDS ORDERED: LIDOCAINE 2% VISCOUS 100 ML BOTTLE. ONE (09:54)
[2020-06-08] MEDS ORDERED: EPINEPHrine 1 MG/ML VIAL ONE (09:54)
[2020-06-08] MEDS ORDERED: LIDOCAINE 4% TOPICAL 50 ML SOLUTION. ONE (09:54)
[2020-06-08] MEDS ORDERED: LIDOCAINE 1% Multi-Dose 20 ML VIAL. ONE (09:54)
[2020-06-08] MEDS: IV RINGERS,LACTATED 1000ML 1,000 ML IV SCH ×2 (10:34→21:23)
[2020-06-08] MEDS ORDERED: PROPOFOL 10 MG/ML (20ML) VIAL. IV ONE (10:55)
[2020-06-08] MEDS ORDERED: LIDOCAINE 2% PF 5 ML VIAL. ONE (10:55)
--- NOTE | 2020-06-08 11:44 | OP ---
DATE OF SURGERY: 06/08/2020 PROCEDURE: Bronchoscopy. INDICATIONS: Lung mass and hemoptysis. DESCRIPTION OF PROCEDURE: Informed consent was obtained from the patient. All risks and benefits were explained. She agreed to proceed with the procedure. Risks including worsening bleeding and with respiratory failure. Propofol was used by Anesthesia for sedation. Bronchoscope was introduced through the left nostril. The upper airway was passed. Vocal cord moves equally with respiration. Trachea was entered. No tracheal lesions seen. Mary was sharp. Upon inspection of the right lung, especially the right upper lobe, there was oozing of blood seen distally from the apical subsegment of the right upper lobe. I could not visualize any obvious endobronchial lesion. It could be distally present, but the scope was unable to reach that area despite maximum angulation. Blind cytology brush was obtained from that area. Bronch was then introduced at the junction of right middle lobe and right lower lobe. The subcarina was wide. There was narrowing of the opening of the right middle lobe and there was submucosal tumor. Biopsies x 3 were performed from this area and cytology brush was performed from this area. There was oozing of blood noticed, which was controlled with squirt of epinephrine. The right lower lobe appeared patent. The left lung was examined. All subsegments of left upper lobe, lingula and left lower lobe were examined. No endobronchial lesions seen. No mucosal abnormality seen. IMPRESSION: 1. Significant narrowing of the opening of the right middle lobe bronchus with widening of the subcarina between right middle lobe and right lower lobe. There was mucosal tumor seen at the opening of the right middle lobe. Biopsies x 3 along with cytology brush x 2 was performed from this area. 2. Oozing of the blood noticed from the apical subsegment of the right upper lobe very distally. Despite maximum angulation with the bronchoscope, I could not visualize any definite endobronchial lesion, which may be present distally. A blind cytology brush was obtained from this area. 3. The patient tolerated the procedure well. We will follow the results of the biopsy. ANNA RIOJAS MD DR: KHURRAM/nabil JOB#: [id number] / [id number]
--- NOTE | 2020-06-08 11:57 | PDOC ---
[facility] PROGRESS NOTE Chief Complaint Chief Complaint Acute hypoxic respiratory failure secondary to underlying COPD, obesity Hemoptysis secondary to suspected endobronchial lesion. Primary lung malignancy - large suprahilar mass 9.3 cm in size causing compression of the right upper lobe bronchus Endobronchial lesion Postobstructive consolidation in the right upper lobe, Right pleural effusion Tobacco use Hypertension History of Present Illness History of Present Illness 06/08/2020 Patient was seen and examined Charts reviewed Discussed with RN HISTORY OF PRESENT ILLNESS: The patient is a pleasant 65-year-old female who states she quit smoking 3 weeks ago, but then she had a cigarette on the way to the hospital. She came to the hospital because she has been coughing up blood, it is a fair amount of blood, rated at 6/10. She has associated anxiety. I discussed the case with ER physician. We are going to admit the patient and consult Pulmonary Medicine. It should be noted that she also has a lung mass on her chest x-ray done in the ER. It is a large mass about 9.3 x 6.4 causing compression of the right bronchus. Findings are favoring primary lung cancer. Vitals/I&O Vitals/I&O: Vital Signs Date Time Temp Pulse Resp B/P (MAP) Pulse Ox O2 Delivery O2 Flow Rate FiO2 06/08/20 11:37 93 16 157/81 97 Simple Mask 5 06/08/20 11:22 97.8 97.8 I & O 06/07/20 06/07/20 06/08/20 15:00 23:00 07:00 Intake Total 240 ml Balance 240 ml Physical Exam General: Alert, Oriented X3, Cooperative Heart: Regular rate, Normal S1 Lungs: Other (decrease bs ) Abdomen: Normal bowel sounds Extremities: No cyanosis, Normal pulses Skin: No rashes Labs Labs: Laboratory Tests Test 06/08/20 08:15 Prothrombin Time 13.7 SEC (11.7-14.0) Prothromb Time International Ratio 1.1 (0.8-1.1) Assessment and Plan Assessmemt and Plan Problems Medical Problems: (1) Cough with hemoptysis Status: Acute (2) Lung mass Status: Acute Assessment Acute hypoxic respiratory failure secondary to underlying COPD, obesity Hemoptysis secondary to suspected endobronchial lesion. Primary lung malignancy - large suprahilar mass 9.3 cm in size causing compression of the right upper lobe bronchus Endobronchial lesion Postobstructive consolidation in the right upper lobe Right pleural effusion Tobacco use Hypertension Plan Trend labs Home Meds DVT prophylaxis Awaiting results from bronchoscopy IV antibiotics Appreciate subspecialist input Comment Review of Relevant I have reviewed the following items holly (where applicable) has been applied. Medications: Current Medications Medications (Trade) Dose Ordered Sig/Star Route PRN Reason Start Time Stop Time Status Last Admin Dose Admin Ceftriaxone Sodium (Rocephin) 1 gm Q24H IVP 06/07/20 13:00 06/07/20 15:41 Aspirin (Ecotrin) 81 mg DAILY PO 06/07/20 13:30 06/07/20 15:38 Atorvastatin Calcium (Lipitor) 40 mg HS PO 06/07/20 21:00 06/07/20 20:36 Divalproex Sodium (Depakote) 1,000 mg HS PO 06/07/20 21:00 06/07/20 20:36 Furosemide (Lasix) 20 mg DAILY PO 06/07/20 13:30 06/07/20 15:39 Losartan Potassium (Cozaar) 25 mg DAILY PO 06/07/20 13:30 06/07/20 15:39 Diltiazem HCl (Cardizem 24hr Cd) 180 mg BID PO 06/07/20 21:00 06/07/20 20:37 Metformin HCl (Glucophage) 1,000 mg BIDWMEALS PO 06/07/20 17:00 06/07/20 17:42 Multivitamins (Thera M Plus) 1 tab DAILY PO 06/07/20 13:30 06/07/20 15:39 Nortriptyline HCl (Pamelor) 100 mg QHS PO 06/07/20 21:00 06/07/20 20:36 Baclofen (Lioresal) 20 mg TID PO 06/07/20 14:00 06/07/20 20:36 Albuterol Sulfate (Ventolin Neb Soln) 2.5 mg PRN 1X PRN NEB SHORTNESS OF BREATH 06/08/20 09:15 06/09/20 09:14 06/08/20 10:34 Lidocaine HCl (Lidocaine 2% Viscous) 100 ml PRN 1X PRN MM FOR PROCEDURE 06/08/20 09:15 06/09/20 09:14 06/08/20 10:35 Lidocaine HCl (Lidocaine 1% 20ml Vial) 20 ml PRN 1X PRN INJ SEE COMMENTS 06/08/20 09:15 06/09/20 09:14 06/08/20 10:35 Epinephrine HCl (Adrenalin) 1 mg PRN 1X PRN INJ SEE COMMENTS 06/08/20 09:15 06/09/20 09:14 06/08/20 11:35 Lidocaine HCl (Lidocaine 4% Topical) 50 ml PRN 1X PRN MM SEE COMMENTS 06/08/20 09:15 06/09/20 09:14 06/08/20 10:35 Ringer's Solution 1,000 ml @ 100 mls/hr Q10H IV 06/08/20 10:30 06/08/20 10:34 Justicifation of Admission Dx: Justifications for Admission: Justification of Admission Dx: Yes LUCIANA LANDEROS III DO Jun 08, 2020 11:57
[2020-06-08] MEDS: IV NORMAL SALINE 1000ML BAG 1,000 ML IV SCH (12:30)
[2020-06-08] MEDS: cefTRIAXone IV Push 1 GM VIAL. IVP SCH (14:02)
[2020-06-08 15:00] VITALS: BP 162/71
--- NOTE | 2020-06-08 17:16 | NUR ---
SW following. Spoke with RN and reviewed chart. Pt off the floor having a procedure/biopsy today. SW to continue following.
[2020-06-08 19:00] VITALS: BP 163/93
[2020-06-08] MEDS: NORTRIPTYLINE 25 MG CAPSULE PO SCH (21:24)
[2020-06-08] MEDS: ATORVASTATIN CALCIUM 40 MG TABLET. PO SCH (21:24)
[2020-06-08] MEDS: DIVALPROEX DELAYED RELEASE 500 MG TABLET.DR. PO SCH (21:25)
[2020-06-08 23:00] VITALS: BP 169/101
[2020-06-09 03:00] VITALS: BP 125/79
[2020-06-09] MEDS: IV RINGERS,LACTATED 1000ML 1,000 ML IV SCH ×2 (04:52→16:30)
[2020-06-09 07:15] VITALS: BP 143/75
[2020-06-09] MEDS: BACLOFEN 10 MG TABLET. PO SCH ×2 (09:15→16:06)
[2020-06-09] MEDS: metFORMIN 500 MG TABLET PO SCH ×2 (09:15→17:34)
[2020-06-09] MEDS: FUROSEMIDE 20 MG TABLET PO SCH (09:15)
[2020-06-09] MEDS: ASPIRIN ENTERIC COATED 81 MG TABLET.DR. PO SCH (09:15)
[2020-06-09] MEDS: MULTIVITAMIN with MINERAL TABLET. PO SCH (09:15)
[2020-06-09] MEDS: LOSARTAN POTASSIUM 25 MG TABLET. PO SCH (09:20)
--- NOTE | 2020-06-09 10:23 | PDOC ---
PULMONARY PROGRESS NOTES Subjective hemoptysis improving no soa Vitals Vital Signs Date Time Temp Pulse Resp B/P (MAP) Pulse Ox O2 Delivery O2 Flow Rate FiO2 06/09/20 09:20 87 143/75 06/09/20 07:15 97.8 18 91 Room Air 97.8 06/08/20 11:52 5 ROS: No Chest Pain, No Increase Cough General: Alert, No acute distress Lungs: Other (decrease bs ) Cardiovascular: S1 Abdomen: Soft, Other (obese) Neuro Exam: Alert Extremities: No Edema Skin: Warm Labs Laboratory Tests Test 06/08/20 08:15 Prothrombin Time 13.7 SEC (11.7-14.0) Prothromb Time International Ratio 1.1 (0.8-1.1) Medications Active Scripts Medications Dose Route/Sig Max Daily Dose Days Date Category Dose Instructions Augmentin 875-125 Tablet (Amoxicillin/Potassium Clav) 1 Each Tablet 1 Tab PO BID 4 06/07/20 Reported Baclofen 20 Mg Tablet 20 Mg PO TID 06/07/20 Reported Metronidazole 500 Mg Tablet 1 Tab PO BID 7 06/07/20 Reported Aspir-Low (Aspirin) 81 Mg Tablet.dr 81 Mg PO DAILY 02/18/14 Reported LAST DOSE GIVEN: DATE: 03/08 TIME: 9 am NEXT DOSE DUE: DATE: 03/09 TIME: 9 am Nitrostat (Nitroglycerin) 0.4 Mg Tab.subl 0.4 Mg SL PRN 02/09/14 Reported Take as directed as needed for chest pain. Losartan Potassium (Losartan Potassium) 25 Mg Tablet 25 Mg PO DAILY 02/09/14 Reported LAST DOSE GIVEN: DATE: 03/06 TIME: 9 am NEXT DOSE DUE: DATE: 03/09 TIME: 9 am Atorvastatin Calcium 40 Mg Tablet 40 Mg PO HS 02/09/14 Reported LAST DOSE GIVEN: DATE: 03/07 TIME: 9 pm NEXT DOSE DUE: DATE: 03/08 TIME: 9 pm Nortriptyline Hcl 50 Mg Capsule 100 Mg PO HS 02/09/14 Reported LAST DOSE GIVEN: DATE: 03/07 TIME: 9 pm NEXT DOSE DUE: DATE: 03/08 TIME: 9 pm Depakote (Divalproex Sodium) 500 Mg Tablet.dr 1,000 Mg PO HS 02/09/14 Reported LAST DOSE GIVEN: DATE: 03/07 TIME: 9 pm NEXT DOSE DUE: DATE: 03/08 TIME: 9 pm Metformin Hcl 1,000 Mg Tablet 1,000 Mg PO BID 02/09/14 Reported LAST DOSE GIVEN: DATE: 03/08 TIME: 8 am NEXT DOSE DUE: DATE: 03/08 TIME: 5 pm Diltiazem Hcl Tablet (Diltiazem Hcl) 120 Mg Tablet 180 Mg PO BID 02/09/14 Reported LAST DOSE GIVEN: DATE: 03/08 TIME: 9 am NEXT DOSE DUE: DATE: 03/08 TIME: 9 am Furosemide 20 Mg Tablet 20 Mg PO DAILY 02/09/14 Reported LAST DOSE GIVEN: DATE: 03/07 TIME: 9 am NEXT DOSE DUE: DATE: 03/09 TIME: 9 am Multiple Vitamin (Multivitamin With Minerals) 1 Each Tablet 1 Each PO DAILY 02/09/14 Reported LAST DOSE GIVEN: DATE: 03/08 TIME: 9 am NEXT DOSE DUE: DATE: 03/09 TIME: 9 am Impression . 1. Acute hypoxic respiratory failure secondary to underlying chronic obstructive pulmonary disease, obesity and highly suspected primary lung malignancy with endobronchial lesion. 2. Hemoptysis secondary to mucosal endobronchial lesion. 3. Abnormal CT chest with a large suprahilar mass 9.3 cm in size causing compression of the right upper lobe bronchus and also endobronchial lesion is suspected. She has a postobstructive consolidation in the right upper lobe, which could be combination of blood and pneumonia. Plan . 1. s/p bronchoscopy. BX from RML opening mucosa non diagnostic. Mostly extrinsic compression by large tumor. d/w IR and patient. Will consider ct guided bx. she understands risk of PTX. If no dx, then will need Media stinoscopy. 2. CT abdomen and pelvis with no distant metastasis. 3. Continue present oxygen. 4. empiric antibiotic. 5. Weight loss is advised. 6. Medical-Oncology and Radiation-Oncology rec Based on the CT chest, she is not a surgical candidate. 7. PFTs as an outpatient. 8. Discussed with RN and we will follow along with you. 9. IR consulted Addend: d/w IR. Mostly lung consolidation . Will not be able to bx. would recommend discharging patient and do op Mediastinoscopy . Would rec referring patient to thoracic surgery at [facility]. ANNA RIOJAS MD Jun 09, 2020 10:23
[2020-06-09 11:09] VITALS: BP 124/85
--- NOTE | 2020-06-09 11:40 | PDOC ---
[facility] PROGRESS NOTE Chief Complaint Chief Complaint Acute hypoxic respiratory failure secondary to underlying COPD, obesity Hemoptysis secondary to suspected endobronchial lesion. Primary lung malignancy - large suprahilar mass 9.3 cm in size causing compression of the right upper lobe bronchus Endobronchial lesion Postobstructive consolidation in the right upper lobe, Right pleural effusion Tobacco use Hypertension History of Present Illness History of Present Illness 06/09/2020 Patient is seen and examined, resting comfortably Charts reviewed Discussed with RN Patient is awaiting CT guided broncoscopy Patient states that hemoptysis has improved 06/08/2020 Patient was seen and examined Charts reviewed Discussed with RN HISTORY OF PRESENT ILLNESS: The patient is a pleasant 65-year-old female who states she quit smoking 3 weeks ago, but then she had a cigarette on the way to the hospital. She came to the hospital because she has been coughing up blood, it is a fair amount of blood, rated at 6/10. She has associated anxiety. I discussed the case with ER physician. We are going to admit the patient and consult Pulmonary Medicine. It should be noted that she also has a lung mass on her chest x-ray done in the ER. It is a large mass about 9.3 x 6.4 causing compression of the right bronchus. Findings are favoring primary lung cancer. Vitals/I&O Vitals/I&O: Vital Signs Date Time Temp Pulse Resp B/P (MAP) Pulse Ox O2 Delivery O2 Flow Rate FiO2 06/09/20 11:09 98.2 91 18 124/85 (98) 92 Room Air 98.2 06/08/20 11:52 5 I & O 06/08/20 06/08/20 06/09/20 15:00 23:00 07:00 Intake Total 400 ml 120 ml Balance 400 ml 120 ml Physical Exam General: Alert, Oriented X3, Cooperative, No acute distress Heart: Regular rate, Normal S1 Lungs: Other (decrease bs ) Abdomen: Normal bowel sounds Extremities: No cyanosis, Normal pulses Skin: No rashes Assessment and Plan Assessmemt and Plan Problems Medical Problems: (1) Cough with hemoptysis Status: Acute (2) Lung mass Status: Acute Assessment Acute hypoxic respiratory failure secondary to underlying COPD, obesity Hemoptysis secondary to suspected endobronchial lesion. Primary lung malignancy - large suprahilar mass 9.3 cm in size causing compression of the right upper lobe bronchus Endobronchial lesion Postobstructive consolidation in the right upper lobe, Right pleural effusion Tobacco use Hypertension Plan Cardiac monitoring Trend labs Home Meds DVT prophylaxis Awaiting CT guided bronchoscopy IV antibiotics Appreciate subspecialist input Comment Review of Relevant I have reviewed the following items holly (where applicable) has been applied. Justicifation of Admission Dx: Justifications for Admission: Justification of Admission Dx: Yes LUCIANA LANDEROS III DO Jun 09, 2020 11:40
[2020-06-09] MEDS: IV NORMAL SALINE 1000ML BAG 1,000 ML IV SCH (12:30)
[2020-06-09 12:47] LABS: PROTHROMBIN TIME PATIENT 14.3 SEC (11.7-14.0)
[2020-06-09] MEDS ORDERED: LIDOCAINE WITH 8.4% SOD BICARB 3 ML DISP.SYRIN. ONE (13:38)
[2020-06-09] MEDS ORDERED: MIDAZOLAM HCL/PF 2 MG/2 ML VIAL. ONE (13:52)
[2020-06-09] MEDS ORDERED: fentaNYL PF VIAL 100 MCG/2 ML VIAL ONE (13:52)
[2020-06-09] MEDS ORDERED: MIDAZOLAM HCL/PF 2 MG/2 ML VIAL. IV ONE (14:00)
[2020-06-09] MEDS ORDERED: fentaNYL PF VIAL 100 MCG/2 ML VIAL IV ONE (14:00)
[2020-06-09] MEDS ORDERED: LIDOCAINE WITH 8.4% SOD BICARB 3 ML DISP.SYRIN. IJ ONE (14:00)
--- NOTE | 2020-06-09 14:15 | NUR ---
Pt to IR for lung biopsy, will not be completed today per Mahin WALKER. YEN RN
--- NOTE | 2020-06-09 15:08 | PATHOLOGY ---
[facility] Accession Number: [id number] . 01 Material submitted: . lung - BBX RML. Modifiers: right, mid . 01 Clinical history: . Lung mass, hemoptysis . 02 Diagnosis: Bronchial biopsies, right middle lobe: - Slight chronic inflammation. (JPM:odessa; 06/09/2020) S 06/09/2020 0910 Local . 02 Comment: Sections of the bronchial biopsy reveal several segments of bronchial mucosa showing mild congestion, edema, and slight chronic inflammation. There is no evidence of malignancy. (JPM:odessa; 06/09/2020) . 02 Electronically signed: . Tony Holm MD, Pathologist NPI- [id number] . 01 Gross description: . The specimen is received in formalin, labeled "Megha Molina, [facility] bronch biopsy". Received are three segments of pale carter soft tissue ranging in size from 0.1 to zero point to cm in maximum dimensions. The specimen is submitted entirely in cassette A1. ([facility]; 06/08/2020) QA/QA 06/08/2020 1747 Local . 02 Pathologist provided ICD-10: J42 . 02 CPT . 585865 Specimen Comment: A courtesy copy of this report has been sent to [phone] Specimen Comment: [phone], , Specimen Comment: Report sent to ,DR CHAPA,DR WAHL / DR ELLIS Performed at: 01 [facility] [address], [place], [place] [id number] MD Boy Arshad MD Phone: [phone] Performed at: 02 [facility] [address] [place], [place] [id number] MD Tony Holm MD Phone: [phone]
[2020-06-09 15:15] VITALS: BP 135/85
[2020-06-09] MEDS: cefTRIAXone IV Push 1 GM VIAL. IVP SCH (16:02)
--- NOTE | 2020-06-09 16:16 | NUR ---
SW following. Coordinated care with RN and CM. Reviewed chart. Spoke with pt who stated no concerns about returning home. Pt was going to have a biopsy of her lung today but will follow up out-patient. Pt to discharge home today, 06/09/2020. Pt on room air and oral medications. No further SW needs at this time.
--- NOTE | 2020-06-09 17:07 | PATHOLOGY ---
Note [facility] Accession Number: [id number] TESTS RESULT FLAG UNITS REF RANGE LAB Clinician Provided Cytology Information No. of containers..01 Other (Miscellaneous) Source: 01 BRUSH TIP DIAGNOSIS: 02 BRUSH TIP NEGATIVE FOR MALIGNANT CELLS. REACTIVE BRONCHIAL CELLS ARE PRESENT. PULMONARY MACROPHAGES (DUST CELLS) ARE PRESENT. Signed out by: 02 Tony Holm MD, Pathologist NPI- [id number] Performed by: Дмитрий James, Wind Project Manager ([facility]) Gross description: 01 1 PHILL /MITCH 06/08/[address] [place] [address] FLAG LEGEND: L-Low Normal,H-High Normal,LL-Alert Low,HH-Alert High <-Panic Low,>-Panic High,A-Abnormal,AA-Critical Abnormal Performed at: 01 [facility] [address] [place] [address] Boy Arshad MD, [address] [facility] [address] [place] [address] Tony Holm MD, Specimen Comment: A courtesy copy of this report has been sent to [phone] Specimen Comment: [phone], Specimen Comment: Report sent to ,DR CHAPA / DR ELLIS Specimen Comment: A duplicate report has been generated due to demographic updates. Performed at: [address] [place] [address] [place] [address], [place], [place] [id number] MD Boy Arshad MD Phone: [phone]
--- NOTE | 2020-06-09 17:07 | PATHOLOGY ---
Note [facility] Accession Number: [id number] TESTS RESULT FLAG UNITS REF RANGE LAB Clinician Provided Cytology Information No. of containers..01 Slide Source: BRONCH BRSH RUL RML DIAGNOSIS: BRONCH BRSH RUL RML NEGATIVE FOR MALIGNANT CELLS. REACTIVE BRONCHIAL CELLS AND FEW PULMONARY MACROPHAGES PRESENT. Signed out by: 02 Tony Holm MD, Pathologist NPI- [id number] Performed by: Дмитрий James, Director Group Sales ([facility]) Gross description: 01 2 FX /LCS 06/08/[address] [place] [address] FLAG LEGEND: L-Low Normal,H-High Normal,LL-Alert Low,HH-Alert High <-Panic Low,>-Panic High,A-Abnormal,AA-Critical Abnormal Performed at: [address] [place] [address] Boy Arshad MD, 02 [facility] [address] [place] [address] Tony Holm MD, Specimen Comment: A courtesy copy of this report has been sent to [phone]- Specimen Comment: [phone], Specimen Comment: Report sent to ,DR CHAPA / DR ELLIS Performed at: [address] [place] [address] [address], [place], [place] [id number] MD Boy Arshad MD Phone: [phone]
--- NOTE | 2020-06-09 17:11 | RAD ---
Limited CT imaging of the chest 06/09/2020 INDICATION: Possible lung biopsy Discussion: Limited CT imaging of the chest was performed for possible CT guided lung biopsy. No new abnormalities are identified from prior exam. Lung biopsy was not performed Impression: CT guided lung biopsy not performed. PQRS Compliance Statement: One or more of the following individualized dose reduction techniques were utilized for this examination: 1. Automated exposure control 2. Adjustment of the mA and/or kV according to patient size 3. Use of iterative reconstruction technique
[2020-06-09] MEDS ORDERED: DOXY100C2 PO (18:45)
--- NOTE | 2020-06-09 20:00 | NUR ---
Discharge Note: Patient was discharged home with self care. Patients IV was discontinued without any complications per TANNA. Patient was given discharge summary/instructions, follow-ups, and educational material. Patients prescription was called into patients preferred pharmacy. Patient did not have any further questions or concerns. Patient was taken down to the ER entrance via wheelchair with all personal belongings, accompanied by TANNA Catalan, where patients friend was waiting for her to take her home.
--- NOTE | 2020-06-09 20:48 | DS ---
DATE OF DISCHARGE: 06/09/2020 ADMISSION DIAGNOSES: Hemoptysis and 9 cm new lung mass, history of severe tobacco abuse. DISCHARGE DIAGNOSES: Lung mass (we tried to biopsy it a couple of times, but it is just in the wrong position. She is going to follow up at another facility where they can get access to this mass. HOSPITAL COURSE: The patient is a pleasant elderly female who smoked heavily until just a few weeks ago. She actually smoked her last cigarette on the way to the hospital. She has been coughing up blood. We admitted her. We did some imaging. She does have a 9 cm mass. We have tried to biopsy with bronchoscopy, but that was not successful. Then we consulted Interventional Radiology, but they were not able to biopsy it either. Today, I did see her and examined her, she is doing quite well. Heart tones were normal. Lungs were surprisingly clear. We are going to discharge if she is going to follow up at another facility, perhaps [facility] for a biopsy of the mass. DISPOSITION: Home. ACTIVITY: As tolerated. DIET: Low sodium. MEDICATIONS: Please see the MRAD. TOTAL TIME: 32 minutes. LUCIANA LANDEROS DO DR: JAMEL/nabil JOB#: [id number] / [id number]
== END 2020-06-09 20:00 | disposition home or self-care (01) | DRG 177 ==
LOC: ER 16:58 → 6 SOUTH 22:47 → 5 NORTH 06-08 02:51
PROVIDERS: ADMIT Internal Medicine; ATTEND Internal Medicine
PROC: 0BB58ZX Excision of Right Middle Lobe Bronchus, Via Natural or Artificial Opening Endoscopic, Diagnostic (ICD-10-PCS; principal; 2020-06-08 11:00)
DX: J69.0 Pneumonitis due to inhalation of food and vomit (principal); J96.01 Acute respiratory failure with hypoxia; R04.2 Hemoptysis; J44.0 Chronic obstructive pulmonary disease with (acute) lower respiratory infection; J90 Pleural effusion, not elsewhere classified; Z68.41 Body mass index [BMI] 40.0-44.9, adult; M19.90 Unspecified osteoarthritis, unspecified site; Z20.828 Contact with and (suspected) exposure to other viral communicable diseases; E11.9 Type 2 diabetes mellitus without complications; E66.01 Morbid (severe) obesity due to excess calories; E78.5 Hyperlipidemia, unspecified; F17.200 Nicotine dependence, unspecified, uncomplicated; F41.9 Anxiety disorder, unspecified; I10 Essential (primary) hypertension; Z82.49 Family history of ischemic heart disease and other diseases of the circulatory system; Z96.649 Presence of unspecified artificial hip joint; Z88.2 Allergy status to sulfonamides; Z88.8 Allergy status to other drugs, medicaments and biological substances
CPT/HCPCS: 31622; 36415; 71250; 71275; 74176; 80053; 83735; 83880; 84484; 85025; 85610; 88104; 88112; 88305; 93005; 94640; 96360; 99285; J0171; J0696; J2704; J3490; J7030; J7040; J7120; G0378; J7613; U0003-CS